=== PATIENT | male | born 1945 | race Caucasian/White ===

== ENCOUNTER 2021-09-18 14:24 | Outpatient (CLI) | payer OTHER | END 2021-09-18 23:59 | disposition home or self-care (01) | LOC: CARD DIAG 14:24 | PROVIDERS: ATTEND Internal Medicine | DX: I08.1 Rheumatic disorders of both mitral and tricuspid valves (principal); I25.10 Atherosclerotic heart disease of native coronary artery without angina pectoris | CPT/HCPCS: 93306 ==

== ENCOUNTER 2021-10-01 17:02 | Emergency (ER) | payer OTHER, MEDICARE ==
[~2021-10-01] VITALS: Ht 193 cm; Wt 109.1 kg
[2021-10-01 17:13] VITALS: BP 143/71
[2021-10-01 17:50] LABS: BASOPHILS % (AUTO) 0.5 % (0-1); EOSINOPHILS # (AUTO) 0.4 X10'3 (0-0.9); EOSINOPHILS % (AUTO) 9.1 % (0-6); HEMATOCRIT 39.5 % (42.0-52.0); HEMOGLOBIN 13.2 g/dl (14.0-17.9); LYMPHOCYTES # (AUTO) 0.7 X10'3 (1.1-4.8); LYMPHOCYTES % (AUTO) 15.1 % (21-51); MEAN CORPUSCULAR HEMOGLOBIN 30.5 PG (27.0-31.0); MEAN CORPUSCULAR HGB CONC 33.5 g/dL (33.0-36.5); MEAN CORPUSCULAR VOLUME 91.1 FL (78-98); MEAN PLATELET VOLUME 8.6 FL (7.4-10.4); MONOCYTES # (AUTO) 0.4 X10'3 (0-0.9); MONOCYTES % (AUTO) 9.6 % (2-12); NEUTROPHILS # (AUTO) 2.9 X10'3 (1.8-7.7); NEUTROPHILS % (AUTO) 65.7 % (42-75); PLATELET COUNT 146 X10'3 (140-440); RED BLOOD COUNT 4.34 X10'6 (4.70-6.10); RED CELL DISTRIBUTION WIDTH 16.8 % (11.5-14.5); WHITE BLOOD COUNT 4.5 X10'3 (4.5-11.0)
[2021-10-01 18:01] LABS: ALANINE AMINOTRANSFERASE 27 U/L (12-78); ALBUMIN/GLOBULIN RATIO 0.8 (1.1-1.5); ALKALINE PHOSPHATASE 98 IU/L (46-116); ANION GAP 5 (8-16); ASPARTATE AMINO TRANSFERASE 34 U/L (10-37); BLOOD UREA NITROGEN 25 MG/DL (7-18); BUN/CREATININE RATIO 27.2 (5.4-32.0); CALCIUM 8.7 MG/DL (8.5-10.1); CHLORIDE 104 MMOL/L (99-107); CREATININE 0.92 MG/DL (0.60-1.10); GLUCOSE 133 MG/DL (70-104); POTASSIUM 3.3 MMOL/L (3.5-5.1); SODIUM 139 MMOL/L (135-145); TOTAL PROTEIN 6.6 G/DL (6.4-8.2); eGFR 80 ML/MIN
[2021-10-01 18:48] LABS: CLARITY,URINE CLEAR (Clear); COLOR,URINE YELLOW (Yellow); GLUCOSE, URINE NEGATIVE (Neg); KETONES,URINE NEGATIVE (Neg); LEUKOCYTE ESTERASE ,URINE NEGATIVE (Neg); NITRITES, URINE NEGATIVE (Neg); OCCULT BLOOD,URINE NEGATIVE (Neg); PROTEIN,URINE NEGATIVE (Neg); UROBILINOGEN,URINE 0.2 E.U/dL (0.2-1.0)
[2021-10-01 18:52] LABS: UA COLLECTION TYPE CLN CATCH MIDSTREAM
[2021-10-01] MEDS ORDERED: LEVO500T90 PO (21:32)
== END 2021-10-01 21:42 | disposition home or self-care (01) ==
LOC: ER 17:03
DX: N45.1 Epididymitis (principal); N50.812 Left testicular pain; N50.811 Right testicular pain; I86.1 Scrotal varices; K74.60 Unspecified cirrhosis of liver; R18.8 Other ascites; I10 Essential (primary) hypertension; Z95.5 Presence of coronary angioplasty implant and graft; Z88.8 Allergy status to other drugs, medicaments and biological substances; Z79.2 Long term (current) use of antibiotics
CPT/HCPCS: 36415; 74176; 76870; 80053; 81003; 83880; 85025; 93976; 99284

== ENCOUNTER 2025-02-22 18:42 | Emergency (ER) | payer MEDICARE, OTHER ==
[~2025-02-22] VITALS: Ht 190.5 cm; Wt 110.0 kg
[2025-02-22 18:57] VITALS: BP 112/56; PULSE 83; RESP 16; O2SAT 99
--- NOTE | 2025-02-22 19:24 | Physician Documentation ---
History of Present Illness ~ General Chief Complaint: See Chief Complaint Stated Complaint: SEE CHEIF MEDICAL COMPLAINT Time Seen by MD: 19:24 [facility] of Present Illness Initial Comments This is an 79-year-old male with history of ascites who presents requesting a therapeutic paracentesis as his maintenance becoming distended causing him discomfort, patient reports that he would not like to wait very long in the emergency department as he is able to have a paracentesis done tomorrow at the [facility] in [place], though if able to would like to expedite it and have it done tonight. Patient reports no other acute symptoms or concerns including no chest pain or shortness of breath. Medication Reconciliation Allergies: Coded Allergies: ibuprofen (Verified Allergy, Mild, rash, 01/01/16) Past Medical History Past Medical History: Hypertension, Cirrohsis, Hernia, *DERMATOLOGY* Past Surgical History: coronary bypass surgery, orthopedic surgeries Alcohol Use: None Drug Use: none Lives with: Spouse Lives In: Home Review of Systems ROS Abdominal distention as stated above in the HPI, otherwise all systems are reviewed and negative. Physical Exam Physical Exam Vital Signs: Temperature: 97.7, Heart Rate: 83, Respiratory Rate: 16, BP: 112/56, Pulse Oximetry: 99, Weight: 110.000 Oxygen Flow Rate: 0 Physical Exam VITALS: Reviewed and as above. GENERAL: Alert, nontoxic appearing, no apparent distress. RESPIRATORY: No increased work of breathing, no respiratory distress, speaking in full clear sentences, clear lung sounds in all [place] CV: Irregularly irregular rate and rhythm no murmur BACK: No CVA tenderness GI: Distended abdomen, nontender, no rebound, no guarding bowel sounds present Progress Results/Orders Results/Orders Vital Signs 02/22/25 02/22/25 18:57 19:35 Temp 97.7 97.7 Pulse 83 Resp 16 B/P (MAP) 112/56 Pulse Ox 99 O2 Flow Rate 0 Medical Decision Making Findings This 79-year-old male with a history of abdominal edema presented requesting therapeutic paracentesis due to abdominal distention, patient believed he had made an appointment for elective paracentesis today in the emergency department though there was some misunderstanding of online pre registration process and patient was reporting he did not wish to wait several hours to be seen for this procedure as he is able to be seen tomorrow at the [facility] and [place] for the same concern, patient reported no symptoms to indicate he is in acute distress including no chest pain or shortness of breath at rest. Patient was offered the option of bleeding for paracentesis tonight however he did decline and with shared decision-making we will be discharged to follow up with [facility] tomorrow for elective paracentesis, patient was provided information on scheduling paracentesis outpatient with our outpatient treatment center which he reported he will contact his primary care provider for referral for this procedure in the future. Patient is otherwise well-appearing and reports feeling otherwise well, remainder of physical exam benign and is appropriate for outpatient follow up. Differential Diagnosis Pulmonary edema, respiratory distress, bowel obstruction, peritonitis, congestive heart failure, COPD Departure Time of Disposition: 19:22 Disposition: HOME / SELF CARE / HOMELESS Impression: Primary Impression: Abdominal distention Condition: Stable Additional Instructions: Unfortunately we are unable to expedite your paracentesis tonight, please follow up with the [facility] for your paracentesis, you may also contact our outpatient procedure Center to have paracentesis scheduled, you will need a prescription from your primary care provider for this. Please follow up with your primary care provider in the next few days. Please return to the emergency department for any new or worsening concerning symptoms. Referrals: NO PRIMARY CARE PROVIDER (PCP) Education Educated: Patient Educated regarding: diagnosis, treatment, prognosis, need for follow up Signature Scribe Signature: No scribe Attestation: The note accurately reflects work and decisions made by me.ROBERTH Morales 02/22/25 22:21 ARIK TORRES Feb 22, 2025 19:24
[2025-02-22 19:35] VITALS: TEMP 97.7
== END 2025-02-22 19:36 | disposition home or self-care (01) ==
LOC: ER 18:43
DX: R14.0 Abdominal distension (gaseous) (principal); I10 Essential (primary) hypertension; Z95.1 Presence of aortocoronary bypass graft; Z88.6 Allergy status to analgesic agent
CPT/HCPCS: 99281; 99282